=== PATIENT | female | born 1950 | race Hispanic/Latino ===

== ENCOUNTER 2017-03-31 06:18 | Day surgery (SDC) | payer MEDICARE ==
[2017-03-27 11:53] VITALS: BMI 34.3
[2017-03-31] MEDS ORDERED: Lidocaine Hydrochloride 5 ML INJ ONE (07:48)
[2017-03-31] MEDS ORDERED: Propofol 10 mg/ml Inj (20 ML) ONE (07:48)
[2017-03-31] MEDS ORDERED: Midazolam 2 MG/2 ML VIAL ONE (07:48)
[2017-03-31] MEDS ORDERED: ePHEDrine 50 mg/ml Inj ONE (08:11)
[2017-03-31] MEDS ORDERED: HYDROmorphone 0.5 mg/0.5 ml ISec IVP PRN (08:15)
--- NOTE | 2017-03-31 08:26 | PCM.SURG1 ---
Surgeon's Initial Post Op Note - Surgeon's Notes Surgeon: Sue Cabrales MD Scleroscope Tester: none Type of Anesthesia: General LMA Pre-Operative Diagnosis: Post Menopausal bleeding Operative Findings: Anteverted uterus 6-8 weeks, no adnexal masses, bialtera ostia visualized, endometrial mass origintatng from right tubal ostia 1cm completley within cavity, no cervical masses, cervical stenosis, urine output 20cc clear yellow urine Post-Operative Diagnosis: same as above, endometrial mass Operation Performed: Operative hysteroscopy, fractional dilation and currettage , resection of endoemtrial mass Specimen/Specimens Removed: endocervical currettings, endometrial currettngs, endometrial mass Estimated Blood Loss: EBL {In ML}: 5 Blood Products Given: N/A Drains Used: No Drains Post-Op Condition: Good Date of Surgery/Procedure: 03/31/17 Time of Surgery/Procedure: 08:00
[2017-03-31 11:05] VITALS: BP 102/55; PULSE 64; RESP 16; TEMP 98; O2SAT 95
--- NOTE | 2017-03-31 12:46 | OP ---
PROCEDURE DATE: SURGEON: Sue Cabrales MD SPARK TESTER: None. TYPE OF ANESTHESIA: General LMA. PREOPERATIVE DIAGNOSIS: Postmenopausal bleeding. POSTOPERATIVE DIAGNOSES: Postmenopausal bleeding, endometrial mass. OPERATIVE FINDINGS: Anteverted uterus 6-8 weeks, no adnexal masses, bilateral ostia visualized, endometrial mass originating from right to left ostia 1 cm complete within cavity, no cervical mass or cervical stenosis. URINE OUTPUT: 20 mL of clear yellow urine. PROCEDURES: Operative hysteroscopy, fractional dilation and curettage, resection of endometrial mass. SPECIMENS: Endocervical curettings, endometrial curettings and endometrial mass. ESTIMATED BLOOD LOSS: 5 mL. BLOOD PRODUCTS: None. COMPLICATIONS: None. DESCRIPTION OF PROCEDURE: The patient was taken to the operating where she was given general anesthesia. Once found to be adequate, she was placed on the operating table in the dorsal supine position. The patient was then prepped and draped in the usual sterile fashion. A time-out confirmed correct patient and correct procedure. Bimanual exam was performed with the above-mentioned findings. Latex-free catheter was then inserted into the urethra to drain the bladder. Following this, a Franco retractor was placed in the anterior and posterior fornix of the vagina. The cervix was adequately visualized. A single tooth tenaculum was placed in to the anterior lip of the cervix. The cervix appeared stenotic and there was no gross masses. Endocervical curettings were obtained with a Ranjithian curette and sent to pathology on [facility]. The cervix was dilated with . The uterus was then sounded to 6 cm. Following this, the cervix was sequentially dilated with Johnnie dilators to allow for introduction of the 5-mm hysteroscope under direct visualization using normal saline as a distention media. There was a mass noted within in the endometrial cavity and bilateral ostia were visualized. Following this, the MyoSure device was then inserted under direct visualization and the mass was completely resected in entirety. The MyoSure device was then removed and gentle curettage was done 360 degrees until gritty texture was noted. Following this, all instruments were removed. There was good hemostasis noted at the tenaculum puncture site. All instruments were removed. At the end of the procedure, all needle, sponge, and instrument counts were noted and correct x2. The patient tolerated the procedure well and was transferred to the recovery room in stable condition. Sue Cabrales MD
== END 2017-03-31 11:05 | disposition home or self-care (01) ==
LOC: C.SDS 06:18
PROVIDERS: ATTEND Obstetrics & Gynecology
DX: N95.0 Postmenopausal bleeding (principal); N84.0 Polyp of corpus uteri
CPT/HCPCS: 58558; 88305; J2250; J2704; J3010